=== PATIENT | male | born 1995 | race Caucasian/White ===

== ENCOUNTER 2020-10-26 12:37 | Emergency (ER) | payer BC, SELFPAY ==
--- NOTE | 2020-10-26 12:41 | ED.URI ---
HPI - URI/Sore Throat General Chief Complaint: Upper Respiratory Infection Stated Complaint: Ongoing issue with Mucus Time Seen by Provider: 10/26/20 12:41 Source: patient and RN notes reviewed History of Present Illness HPI Narrative: Patient is a 25-year-old male who presents the urgent care with complaints of constantly having to clear his throat and mucus issues for the last year . Patient states that his has been it constantly driving him crazy about following up on his issue. Patient states that he has tried allergy medication which did not seem to help. States that he tried a saline rinse which did seem to improve the cough for a week or so. Patient states that he noticed the increase in symptoms after getting a husky, but it did take approximately 1 year to develop symptoms. Patient denies any shortness of breath. Denies of any other upper respiratory complaints. Patient denies of any issues with reflux. No other acute complaints. No acute distress noted. Patient aware of the plan of care. Some parts of this dictation were generated by voice recognition software and may contain typographical and/or grammatical inaccuracies. Related Data Allergies Allergy/AdvReac Type Severity Reaction Status Date / Time No Known Allergies Allergy Verified 10/26/20 12:43 Review of Systems Review of Systems: CONSTITUTIONAL: Denies fever, chills, or sweats. EYES: Denies visual changes, redness, or discharge. ENT: Denies rhinorrhea, congestion, sore throat, or otalgia. CARDIOVASCULAR: Denies chest pain, palpitations, or edema. RESPIRATORY: Reports of intermittent dry cough without dyspnea and mucus GASTROINTESTINAL: Denies abdominal pain, nausea, vomiting, or diarrhea. GENITOURINARY: Denies dysuria or hematuria. SKIN: Denies rash or itching. MUSCULOSKELETAL: Denies back pain, joint pain, or myalgia. NEUROLOGIC: Denies headache, numbness, or weakness. All other systems reviewed are negative, except as documented in HPI. PMFSH Comments At the time of my signature, I reviewed and agree with the nursing past medical, surgical, social, and family history. There is no relevant family history pertinent to the patient complaint. Exam Narrative: GENERAL: This is a well-nourished, well-developed patient, in no apparent distress. HEAD: normocephalic, atraumatic. EYES: PERRL. Sclera clear/white. Vision is grossly intact. EARS: External ears normal, auditory canals clear and without drainage, TMs normal without perforation. Hearing grossly intact. NOSE: External nose normal with no obvious nasal discharge, nares without redness, no rhinorrhea. THROAT: Mucous membranes moist, posterior pharynx clear. Mild postnasal drainage NECK: Neck supple CARDIOVASCULAR: Regular rate and rhythm without murmurs, gallops, or rubs. RESPIRATORY: Clear to auscultation. Breath sounds equal bilaterally. No wheezes, rales, or rhonchi. SKIN: warm, intact with no suspicious lesions or rash, good texture and turgor. NEURO: awake, alert, and oriented to person, place and time. There were no obvious focal neurologic abnormalities. EXTREMITIES: No clubbing, cyanosis, or edema. Course Vital Signs Vital signs: Vital Signs Temperature 98.3 F 10/26/20 12:45 Pulse Rate 80 10/26/20 12:45 Respiratory Rate 16 10/26/20 12:45 Blood Pressure 116/76 10/26/20 12:45 Pulse Oximetry 100 10/26/20 12:45 Temperature 98.3 F 10/26/20 12:45 Pulse Rate 80 10/26/20 12:45 Respiratory Rate 16 10/26/20 12:45 Blood Pressure 116/76 10/26/20 12:45 Pulse Oximetry 100 10/26/20 12:45 Reviewed MDM - URI/Sore Throat MDM Narrative Medical decision making narrative: Spoke to the patient regarding symptoms and possibility of other issues. Could be related to reflux, enlarged thyroid, or excessive postnasal drainage due to allergies. Advised the patient to use Flonase nasal spray. May also be almaguer to start omeprazole to see if symptoms do improve. Advised
[2020-10-26 12:45] VITALS: BP 116/76; PULSE 80; RESP 16; TEMP 36.8; O2SAT 100
== END 2020-10-26 13:05 | disposition home or self-care (01) ==
PROVIDERS: Emergency Provider Nurse Practitioner Family
DX: R05 Cough (principal)
CPT/HCPCS: 99211; G0463